=== PATIENT | female | born 1970 | race Caucasian/White ===

== ENCOUNTER → 2016-05-31 | Day surgery (SDC) | payer OTHER ==
[2016-05-12 07:49] VITALS: Ht 165.1 cm; Wt 75.0 kg
--- NOTE | 2016-05-28 10:25 | HISTORY & PHYSICAL EXAMINATION ---
DATE OF ADMISSION: 05/31/2016 The patient is for surgery on 05/31/2016 CHIEF COMPLAINT: Endometrial mass. HISTORY OF PRESENT ILLNESS: The patient is a 46-year-old white female who has been noted to have a polypoid mass by ultrasound in the upper cervical canal or lower uterine segment. It was first noted in August of 2015. Ultrasound done in our office on October of 2015 was not definitive for the mass; however. Follow up ultrasound April 2016 now clearly shows a mass within the lower uterine segment or upper cervical canal and this is larger than previously seen or suspected. I have recommended D&C hysteroscopy. The patient's last menstrual period was 05/12/2016. She is not presently sexually active. She has never been . She had a Pap smear done in 10/10/2015 and this was negative. ALLERGIES: No known drug allergies. MEDICATIONS: The patient takes a vitamin B complex and vitamin D daily. PAST SURGICAL HISTORY: She has had LASIK surgery. She also has a history of dental surgery. MEDICAL PROBLEMS: None at present other than the endometrial mass. PAST MEDICAL HISTORY: The patient has had chickenpox in the past. She has been otherwise healthy. FAMILY HISTORY: Her mother has osteoporosis and a history of valvular heart disease. Her father has elevated cholesterol, hypertension and kidney stones. Her maternal aunt has a history of breast cancer. SOCIAL HISTORY: The patient drinks 5-7 drinks per week. She denies smoking cigarettes. PHYSICAL EXAMINATION: VITAL SIGNS: Height 5 feet 5.5 inches, weight 171 pounds, blood pressure 114/74. HEENT: Grossly within normal limits. NECK: Supple with no masses. CHEST: Her lungs are clear with no wheezing. HEART: Regular rate and rhythm with no murmurs, gallops or rubs. ABDOMEN: Soft and nontender with no masses, no hepatosplenomegaly and no hernias. PELVIC: External genitalia is within normal limits. Vagina is pink and stimulated. Cervix is pink and closed with no lesions visible. Uterus within normal limit size, nontender, adnexa nontender with no masses palpable. EXTREMITIES: No cyanosis, clubbing or edema. IMPRESSION: Endometrial mass by ultrasound. PLAN: The patient is for hysteroscopy, dilation of the cervix and curettage with possible removal of polyp/lesion. The patient is aware of the risks of bleeding, infection, perforation of the uterus which could require additional surgery or treatment and possible need for further therapy. The patient wishes to proceed with the surgery as planned. MTDD
[~2016-05-31] VITALS: Ht 165.1 cm; Wt 75.0 kg
[~2016-05-31] MED LIST: ATROPINE SULFATE 0.1 MG/ML 5ML SYR IV PRN; B-CO1CAP3; CHOL20009 PO; DEXAMETHASONE SOD INJ 4 MG/ML VIAL IV PRN; DEXAMETHASONE SOD INJ 4 MG/ML VIAL ONE; EpHEDrine SULFATE INJ 50 MG/ML AMP IV PRN; FENTANYL CITRATE INJ 50 MCG/1 ML 2 ML VIAL IV PRN; FENTANYL CITRATE INJ 50 MCG/1 ML 2 ML VIAL ONE; KETOROLAC TROMETHAMINE 30 MG/ML VIAL IV. PRN; LABETALOL HCL IV 5 MG/ML 20ML IV PRN; LACTATED RINGER'S 1000ML 1,000 ML IV SCH; LIDOCAINE HCL 2% 2 ML VIAL (20MG/ML) ONE; METOCLOPRAMIDE HCL INJ 5 MG/ML 2 ML VIAL IV PRN; MIDAZOLAM HCL 1 MG/ML 2ML VIAL ONE; MoRPHine SULFATE 10 MG/ML CARP/VIAL IV PRN; ONDANSETRON INJ 2 MG/ML 2 ML VIAL IV PRN; ONDANSETRON INJ 2 MG/ML 2 ML VIAL ONE; PHENYLEPHRINE 100MCG/ML 5ML SYR IV PRN; PROPOFOL IV EMULSION 10 MG/ML 20 ML VIAL IV ONE
--- NOTE | 2016-05-31 08:46 | History & Physical Bridge - SC ---
H&P Re-Evaluation Bridge Note: I have examined the patient, reviewed the History & Physical and in the interval since the performance of the History & Physical I have noted the following changes of clinical significance: No changes noted
--- NOTE | 2016-05-31 09:43 | [facility] Post Operative Brief Note ---
Immediate Operative Summary Operative Date May 31, 2016. Pre-Operative Diagnosis Endometrial mass Post-Operative Diagnosis Cervical stenosis Procedure(s) Performed Dilatation of Cervix And Curettage, Hysteroscopy Surgeon Dr Bergeron General Utility Machine Operator Surgeon(s) None Estimated Blood Loss 25ml Findings See dictated note. Specimens A: Endocervical Currettings B: Endometrial Currettings Complication(s) None Disposition Recovery Room / PACU
--- NOTE | 2016-05-31 09:51 | Discharge Instructions-SurgCtr ---
Discharge Instructions Visit Reason for Visit: Endometrial mass Discharge Discharge Diagnosis / Problem: S/P Dilatation of cervix, hysteroscopy and curettage. Discharge Goals Goal(s): Diagnostic testing, Therapeutic intervention Activity Recommendations Activity Limitations: per Instructions/Follow-up section Anesthesia . Post Anesthesia Instructions: If you have had General Anesthesia or IV Sedation: * Do not drive today. * Resume driving when surgeon permits. * Do not make important decisions or sign legal documents today. * Call surgeon for: 1. Temperature elevations greater than 101 degrees F. 2. Uncontrollable pain. 3. Excessive bleeding. 4. Persistent nausea and vomiting. 5. Medication intolerance (nausea, vomiting or rash). * For nausea and vomiting use only clear liquids such as: tea, soda, bouillon until nausea subsides, then gradually increase diet as tolerated. * If you have any concerns or questions, call your surgeon's office. If physician is unavailable and it is an emergency, call 911 or go to the nearest emergency room. . Instructions / Follow-Up Instructions / Follow-Up ACTIVITY RECOMMENDATIONS: * Avoid tampons, douching, hot tubs, pools, and intercourse until bleeding has stopped. * May shower as usual. * No strenuous activity for 24-48 hours. After 24-48 hours, you can do anything you feel like doing (driving and sports are okay). RETURN TO SCHOOL/WORK: * You may return to school or work after 24 hours unless specified by your physician. DIET: * Resume previous diet. MEDICATIONS: Resume previous medications unless instructed otherwise by your surgeon. Ibuprofen 200mg 2-3 tablets every 4-6 hours as needed --OR-- Aleve 2 tablets every 8-12 hours as needed for post-operative discomfort Medications are over the counter. Tylenol may be used if above medications are contraindicated or not preferred. Medication should be taken with food or milk. do not take on an empty stomach. SPECIAL CARE INSTRUCTIONS: * Check temperature twice daily for one week. Report any elevation over 101 degrees. * Call office if you experience increased pelvic pain or discomfort not relieved by pain medicine, if you have foul smelling vaginal discharge, if you have bleeding that is heavier than a normal menstrual flow. If you are changing a maxi pad every 1- 2 hours, this is too heavy. vaginal spotting is normal for 1-2 weeks. FOLLOW UP VISIT: Call your doctor's office for a post-operative visit at [phone] Bergeron. Diet Recommendations Home Diet: resume previous diet Procedures Procedures Performed: Dilatation of Cervix And Curettage, Hysteroscopy Pending Studies Studies pending at discharge: yes List of pending studies: Pathology report of tissues removed. We will call you with that result. Medical Emergencies . Who to Call and When: Medical Emergencies: If at any time you feel your situation is an emergency, please call 911 immediately. . Non-Emergent Contact Non-Emergency issues call your: Condominium Property Manager Call Non-Emergent contact if: temperature is above 100.5 . . "Provider Documentation" section prepared by Evita Bergeron.
--- NOTE | 2016-05-31 10:14 | Anesthesia Progress Nt - [facility] ---
Anesthesia Post Op Note Date & Time May 31, 2016 at 10:13 Vital Signs Pain Intensity: 2 Vital Signs Past 12 Hours Date Time Temp Pulse Resp B/P Pulse Ox O2 Delivery O2 Flow Rate FiO2 05/31/16 10:06 70 21 100 05/31/16 10:06 72 21 05/31/16 10:03 110/76 05/31/16 10:01 67 26 100 05/31/16 10:01 66 26 05/31/16 10:00 Room Air 05/31/16 09:58 117/71 05/31/16 09:56 67 14 100 05/31/16 09:56 67 14 05/31/16 09:53 113/72 05/31/16 09:51 66 19 100 05/31/16 09:51 65 19 05/31/16 09:48 112/73 05/31/16 09:46 71 16 100 05/31/16 09:46 69 16 05/31/16 09:43 36.2 71 16 111/77 100 Diffusion Mask 6 05/31/16 07:34 36.8 84 16 100/73 97 Room Air Notes Mental Status: alert / awake / arousable, participated in evaluation Pt Amnestic to Procedure: Yes Nausea / Vomiting: adequately controlled Pain: adequately controlled Airway Patency, RR, SpO2: stable & adequate BP & HR: stable & adequate Hydration State: stable & adequate Anesthetic Complications: no major complications apparent
[2016-05-31 10:41] VITALS: BP 106/63; PULSE 62; TEMP 36.4; O2SAT 100
--- NOTE | 2016-05-31 11:56 | OPERATIVE REPORT ---
DATE OF OPERATION: 05/31/2016 PREOPERATIVE DIAGNOSIS: Endometrial mass. POSTOPERATIVE DIAGNOSIS: Cervical stenosis. PROCEDURE: Dilation of the cervix and curettage with hysteroscopy. SURGEON: Dr. Evita Bergeron. ANESTHESIA: General. EVENT DECORATOR AND DESIGNER: Dr. Shaw. PROCEDURE: The patient was taken to the operating room where general anesthesia was administered. After an adequate level was obtained, she was placed in dorsal lithotomy position. Vulva, vagina and cervix were prepped with Betadine solution. The patient was draped. Bladder was drained with a straight catheter. Moralez retractor was placed in the posterior fornix. The anterior lip of the cervix was grasped with a single tooth tenaculum. The external cervical os was tiny and I had to dilate it with a small wire dilator. I was then able to insert the tip of a small curved hemostat and dilate the external os. Endocervical curettings were obtained. These were scant. The cervix was then dilated up to 19. The uterus was sounded to 8 cm. It was not easy to dilate the cervix. It was very firm. After a great deal of effort, I was able to insert the hysteroscope into the endocervical canal and follow it under direct visualization finally into the endometrial cavity. There were a few polypoid protrusions of tissue, although no distinct or discrete polyps found. After several attempts, it was possible to insert a small serrated curet into the endometrial cavity and curettage was carried out. Scant tissue was obtained. Hysteroscope was reinserted and there were a few polypoid bits of tissue and these were removed with small polyp forceps. At this point, the procedure was ended. The patient was taken to the recovery room in good condition. ESTIMATED BLOOD LOSS: 25 mL. I attest to the content of the Intraoperative Record and any orders documented therein. Any exceptions are noted below. MTDD
== END | disposition home or self-care (01) ==
LOC: X.SURG 07:23
PROVIDERS: ATTEND Obstetrics & Gynecology
DX: R93.8 Abnormal findings on diagnostic imaging of other specified body structures (principal); N88.2 Stricture and stenosis of cervix uteri; Z80.3 Family history of malignant neoplasm of breast

== ENCOUNTER → 2016-10-08 | Outpatient (CLI) | payer OTHER ==
[~2016-10-08] MED LIST changes: -ATROPINE SULFATE 0.1 MG/ML 5ML SYR IV PRN; -DEXAMETHASONE SOD INJ 4 MG/ML VIAL IV PRN; -DEXAMETHASONE SOD INJ 4 MG/ML VIAL ONE; -EpHEDrine SULFATE INJ 50 MG/ML AMP IV PRN; -FENTANYL CITRATE INJ 50 MCG/1 ML 2 ML VIAL IV PRN; -FENTANYL CITRATE INJ 50 MCG/1 ML 2 ML VIAL ONE; -KETOROLAC TROMETHAMINE 30 MG/ML VIAL IV. PRN; -LABETALOL HCL IV 5 MG/ML 20ML IV PRN; -LACTATED RINGER'S 1000ML 1,000 ML IV SCH; -LIDOCAINE HCL 2% 2 ML VIAL (20MG/ML) ONE; -METOCLOPRAMIDE HCL INJ 5 MG/ML 2 ML VIAL IV PRN; -MIDAZOLAM HCL 1 MG/ML 2ML VIAL ONE; -MoRPHine SULFATE 10 MG/ML CARP/VIAL IV PRN; -ONDANSETRON INJ 2 MG/ML 2 ML VIAL IV PRN; -ONDANSETRON INJ 2 MG/ML 2 ML VIAL ONE; -PHENYLEPHRINE 100MCG/ML 5ML SYR IV PRN; -PROPOFOL IV EMULSION 10 MG/ML 20 ML VIAL IV ONE
--- NOTE | 2016-10-08 15:22 | MAMMOGRAPHY REPORT ---
BILATERAL DIGITAL SCREENING MAMMOGRAM TOMOSYNTHESIS WITH CAD: 10/08/2016 CLINICAL HISTORY: Routine screening. Patient has no complaints. TECHNIQUE: Breast tomosynthesis in addition to standard 2D mammography was performed. Current study was also evaluated with a Computer Aided Detection (CAD) system. COMPARISON: Comparison is made to exams dated: 10/07/2015 mammogram, 10/03/2014 mammogram, 10/02/2013 m ammogram - [facility], 12/02/2012 mammogram, 06/19/2012 mammogram, and 06/06/2012 mamm ogram. BREAST COMPOSITION: The tissue of both breasts is heterogeneously dense, which may obscure small mas ses. FINDINGS: No suspicious masses, calcifications, or areas of architectural distortion are noted in ei ther breast. There has been no significant interval change compared to prior exams. IMPRESSION: ACR BI-RADS CATEGORY 1: NEGATIVE There is no mammographic evidence of malignancy. A 1 year screening mammogram is recommended. The pa tient will receive written notification of the results. Approximately 10% of breast cancers are not detected with mammography. A negative mammographic report should not delay biopsy if a clinically suggestive mass is present. Rita Barraza M.D. ah/:10/08/2016 12:34:08 Learning And Development Intern: Delmy MARRERO(R)(M), [facility] letter sent: Normal 1/2 BI-RADS Code: ACR BI-RADS Category 1: Negative
== END | disposition home or self-care (01) ==
LOC: C.MAMM 08:48
PROVIDERS: ATTEND Internal Medicine
DX: Z12.31 Encounter for screening mammogram for malignant neoplasm of breast (principal)

== ENCOUNTER → 2016-10-13 | Outpatient (CLI) | payer OTHER | END | disposition home or self-care (01) | LOC: C.PAPS 12:01 | PROVIDERS: ATTEND Obstetrics & Gynecology | DX: Z01.419 Encounter for gynecological examination (general) (routine) without abnormal findings (principal) ==